=== PATIENT | female | born 1985 | race Caucasian/White ===

== ENCOUNTER 2016-11-11 08:49 | Emergency (ER) | payer BC ==
[2016-11-11 09:01] VITALS: BP 137/87
[2016-11-11] MEDS ORDERED: Bupivacaine 0.25% 10 ML SDV INJECT ONE (09:41)
[2016-11-11] MEDS ORDERED: Ketorolac 60 MG/2 ML SDV IM ONE (10:11)
--- NOTE | 2016-11-11 10:46 | EDM.PDOC ---
ED HPI GENERAL MEDICAL PROBLEM - General Chief Complaint: General Stated Complaint: Tooth Pain Time Seen by Provider: 11/11/16 09:32 Source of Information: Reports: Patient History Limitations: Reports: No Limitations - History of Present Illness INITIAL COMMENTS - FREE TEXT/NARRATIVE: Patient comes in with complaint of tooth ache. 2nd to last molar left upper jaw is the painful tooth. Has been having issues with this tooth for months and has seen her dentist several times. Was told to try to wait it out and see if pain eventually resolved. Had filling and root canal performed. No fevers. No swelling. No drainage around tooth. No lymphadenopathy. No other complaints. Tooth pain varies in intensity. Unable to sleep last night. Tylenol was no help. Is at a 9-10 at times. 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 Left Oral/Mouth Pain Score (Numeric/FACES): 9 - Related Data Allergies Allergy/AdvReac Type Severity Reaction Status Date / Time cefixime [From Suprax] Allergy Rash Verified 11/11/16 08:50 Home Meds: Home Meds Cholecalciferol (Vitamin D3) [Vitamin D3] 1 tab PO DAILY 11/11/16 [History] Fish Oil/Vevay-3 Fatty Acids [Fish Oil 1,000 MG] 1,000 mg PO DAILY 11/11/16 [ History] Gemfibrozil [Lopid] 600 mg PO BID 11/11/16 [History] Lisinopril/Hydrochlorothiazide [Lisinopril-Hctz 10-12.5 mg Tab] 1 tab PO DAILY 11/11/16 [History] Multivitamin [Multivitamins] 1 cap PO DAILY 11/11/16 [History] Triamcinolone Acetonide [Kenalog 0.1% Crm] 1 applic TOP BID PRN 11/11/16 [ History] 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 ED EXAM, GENERAL - Physical Exam Exam: See Below Exam Limited By: No Limitations General Appearance: Alert, WD/WN, Mild Distress Eye Exam: Bilateral Eye: EOMI, PERRL Ears: Normal External Exam, Normal Canal, Hearing Grossly Normal, Normal TMs ( have scars from prior PE tubes/infections) Nose: No: Nasal Swelling, Nasal Drainage Throat/Mouth: Normal Lips, Normal Oropharynx, Normal Voice, No Airway Compromise , Other (Involved tooth examined, left upper 2nd to last molar, slight tenderness to pressure. No swelling around gums noted. No drainage. No chipping/ cracking noted. ) Head: Atraumatic, Normocephalic Neck: Supple, Non-Tender, Full Range of Motion. No: Lymphadenopathy (L), Lymphadenopathy (R) Respiratory/Chest: No Respiratory Distress Cardiovascular: Regular Rate, Rhythm Extremities: Normal Capillary Refill Neurological: Alert, Oriented, Normal Cognition, Normal Gait, No Motor/Sensory Deficits Psychiatric: Normal Affect, Normal Mood Skin Exam: Warm, Dry, Intact, Normal Color ED GENERAL MEDICAL PROCEDURES - Additional/Other Procedure(s) Other (Free Text) Procedure(s): Dental block performed using 2cc 0.25% Marcaine mixed with 0.5cc 1% Lidocaine. Significant improvement of pain down to a "5". Additional block medication given just prior to discharge in hopes of further improvement. Course - Vital Signs Last Recorded V/S: Last Vital Signs Temp 36.9 C 11/11/16 08:59 Pulse 72 11/11/16 08:59 Resp 14 11/11/16 08:59 BP 137/87 11/11/16 08:59 Pulse Ox 100 11/11/16 08:59 - Orders/Labs/Meds Meds: Medications Discontinued Medications Generic Name Dose Route Start Last Admin Trade Name Wilmerq PRN Reason Stop Dose Admin Bupivacaine HCl 10 ml 11/11/16 09:41 11/11/16 10:06 Sensorcaine-Mpf 0.25% INJECT 11/11/16 09:42 10 ml ONETIME ONE Administration Ketorolac Tromethamine 60 mg 11/11/16 10:11 11/11/16 10:18 Toradol IM 11/11/16 10:12 60 mg ONETIME ONE Administration Lidocaine HCl 5 ml 11/11/16 09:42 11/11/16 10:06 Xylocaine-Mpf 1% INJECT 11/11/16 09:43 5 ml ONETIME ONE Administration - Re-Assessments/Exams Free Text/Narrative Re-Assessment/Exam: 11/11/16 12:39 Significant improvement of pain within 30 minutes of dental block. Discharged with Tramadol. Planning on seeing dentist Sunday to formulate next step in plan. She is to watch for any signs of infection/swelling. At this time, no indication for antibiotics observed. Departure - Departure Time of Disposition: 10:44 Disposition: Home, Self-Care 01 Condition: Good Clinical Impression: Tooth pain - Discharge Information Instructions: Ketorolac injection, Tramadol tablets Referrals: Gay Craig PA-C [Primary Care Provider] - Forms: ED Department Discharge Additional Instructions: Follow up Sunday with dentist. Take Tramadol one tablet every 6 hours to help with pain. May also take Aleve or Tylenol or Ibuprofen. Follow up as needed over weekend if pain worsens and additional block is needed , or if you develop fever or swelling of gums around affected tooth.
== END 2016-11-11 11:00 | disposition home or self-care (01) ==
LOC: LL.ED 08:49
DX: K08.89 Other specified disorders of teeth and supporting structures (principal); Z88.8 Allergy status to other drugs, medicaments and biological substances; Z79.899 Other long term (current) drug therapy; Z96.22 Myringotomy tube(s) status; Z98.890 Other specified postprocedural states
CPT/HCPCS: 64400; 96372; 99282; J1885